=== PATIENT | male | born 1955 ===

== ENCOUNTER 2017-07-25 16:10 | Outpatient (CLI) | payer MEDICAID ==
--- NOTE | 2017-07-26 08:49 | Diagnostic Imaging Report ---
Indication: Bilateral chest pain Technique: 2 views of the chest Comparison: None Findings: Surgical clips are seen in the right chest wall. There are degenerative changes of the thoracic spine. The lungs and pleural spaces are clear. The heart size is normal. Impression: Negative
== END 2017-07-25 18:10 | disposition home or self-care (01) ==
LOC: EDUNIT# 16:10 → RAD 16:10
DX: R07.9 Chest pain, unspecified (principal)
CPT/HCPCS: 71046